=== PATIENT | female | born 1970 | race Asian ===

== ENCOUNTER 2019-02-22 06:53 | Day surgery (SDC) | payer OTHER ==
[2019-02-20 16:43] VITALS: BMI 26.4
--- NOTE | 2019-02-22 06:31 | HP ---
History & Physical Update - History History: No Change - Physical Physical: No Change - Assessment Assessment: No Change - Plan Plan: No Change (No change in HP)
[~2019-02-22 06:53] MED LIST: PHENAZOPYRIDINE HCL 100 MG TABLET (FP) PO ONE
[2019-02-22] MEDS ORDERED: PHENAZOPYRIDINE HCL 100 MG TABLET (FP) ONE (06:57)
[2019-02-22] MEDS ORDERED: MIDAZOLAM HCL 2 MG/2 ML SINGLE DOSE VIAL ONE ×2 (07:20)
[2019-02-22] MEDS ORDERED: ROPIVACAINE HCL 0.5% 30ML VIAL ONE (07:21)
[2019-02-22] MEDS ORDERED: ROCURONIUM BROMIDE 50 MG/5 ML SYRINGE ONE ×2 (07:31→09:56)
[2019-02-22] MEDS ORDERED: fentaNYL CITRATE 250 MCG/5 ML VIAL ONE (07:31)
[2019-02-22] MEDS ORDERED: EPHEDRINE SULFATE/0.9% NACL/PF 50 MG/10 ML SYRINGE NR ONE (07:31)
[2019-02-22] MEDS ORDERED: SUCCINYLCHOLINE CHLORIDE 200 MG/10 ML SYRINGE ONE (07:31)
[2019-02-22] MEDS ORDERED: PROPOFOL 20 ML ONE ×8 (07:31→15:37)
[2019-02-22] MEDS ORDERED: CEFAZOLIN 2 GM in DEXTROSE 5%-WATER - 100 ML IVPB ONE (07:51)
[2019-02-22] MEDS ORDERED: ceFAZolin 2 GRAM PREMIX BAG IVPB ONE (08:00)
[2019-02-22] MEDS ORDERED: BENZOIN TINCTURE SWABSTICK TP ONE (09:34)
[2019-02-22] MEDS ORDERED: NEOSTIGMINE METHYLSULFATE 0.5 MG/ML - 10 ML MDV ONE (09:41)
[2019-02-22] MEDS ORDERED: MEPERIDINE HCL 25 MG/ML VIAL ONE (10:26)
[2019-02-22] MEDS ORDERED: MEPERIDINE HCL 25 MG/ML VIAL IVPUSH ONE (10:30)
[2019-02-22] MEDS ORDERED: LACTATED RINGERS SOLUTION 1,000 ML IV SCH (10:30)
[2019-02-22] MEDS ORDERED: ONDANSETRON 4 MG/2 ML VIAL IVPUSH PRN ×2 (10:30→10:39)
[2019-02-22] MEDS ORDERED: DOCUSATE SODIUM 100 MG CAPSULE (FP) PO PRN (10:39)
[2019-02-22] MEDS ORDERED: SIMETHICONE 80 MG TAB.CHEW (FP) PO PRN (10:39)
[2019-02-22] MEDS ORDERED: BISACODYL 5 MG TABLET.DR (FP) PO PRN (10:39)
[2019-02-22] MEDS ORDERED: oxyCODONE HCL 5 MG TABLET PO PRN (10:39)
--- NOTE | 2019-02-22 10:55 | OP ---
<Tanya Vanegas - Last Filed: 02/22/19 11:08> Operative Note - Note: Operative Date: 02/22/19 Pre-Operative Diagnosis: abdominal pain. uterine fibroids Operation: robotic assisted laparoscopic hysterectomy, bilateral salpingectomy. Post-Operative Diagnosis: Same as Pre-op Surgeon: Kanchan Eden Battery Inspector: Tanya Vanegas Anesthesiologist/GUN EXAMINER: Eloise Berry Anesthesia: General, Local (block) Specimens Removed: uterus. bilateral fallopian tubes Estimated Blood Loss (mls): 50 Drains, Volume Out (mls): 200 (rodas) Fluid Volume Replaced (mls): 1,000 Operative Report Dictated: Yes <Kanchan Eden - Last Filed: 02/23/19 06:49> Operative Note - Note: Operation: Laparoscopic robotic Total Hysterectomy. Bilateral salpingectomy
--- NOTE | 2019-02-22 11:11 | SURG ---
Surgery City Council Member Note City Council Member: Tanya Vanegas PA-C Date of Service: 02/22/19 Diagnosis: abdominal pain. uterine fibroids Procedure: robotic assisted laparoscopic hysterectomy, bilateral salpingectomy. I was present for the entirety of the operative procedure. For further detail, please refer to operative report. Visit type - Case Type Case Type: Scheduled - Emergency Emergency Visit: No - New patient This patient is new to me today: Yes Date on this admission: 02/22/19
[2019-02-22] MEDS ORDERED: IBUPROFEN 800 MG/8 ML IJ IVPB ONE (13:51)
[2019-02-22] MEDS ORDERED: CEFAZOLIN 2 GM in DEXTROSE 5%-WATER - 100 ML IVPB SCH (16:00)
[2019-02-22] MEDS: IBUPROFEN 800 MG/8 ML IJ IVPB PRN (18:02)
[2019-02-22] MEDS: CEFAZOLIN 1 GM/D5W 1 GM/50 ML BAG IVPB SCH ×2 (18:04→18:05)
[2019-02-22 18:40] LABS: BLOOD UREA NITROGEN 8.7 mg/dL (7-18); CALCIUM 8.3 mg/dL (8.5-10.1); CREATININE 0.7 mg/dL (0.55-1.3); POTASSIUM 3.8 mmol/L (3.5-5.1)
[2019-02-22 18:43] LABS: HEMATOCRIT 37.7 % (32.4-45.2); HEMOGLOBIN 12.7 GM/dL (10.7-15.3); MCHC 33.7 g/dl (32.0-36.0); MEAN PLT VOLUME 8.6 fl (7.5-11.1); PLATELET COUNT 328 K/MM3 (134-434); RBC 4.24 M/mm3 (3.60-5.2); RDW 13.4 % (11.6-15.6); WHITE BLOOD COUNT 17.8 K/mm3 (4.0-10.0)
[2019-02-22] MEDS: oxyCODONE HCL 5 MG TABLET PO PRN ×2 (19:52→23:54)
[2019-02-22] MEDS: ACETAMINOPHEN 325 MG TABLET (FP) PO PRN (21:26)
[2019-02-23] MEDS ORDERED: DEXTROSE 5%-WATER - 50 ML IVPB ONE (01:27)
[2019-02-23] MEDS ORDERED: ceFAZolin SODIUM 1 GM VIAL ONE (01:27)
[2019-02-23] MEDS: IBUPROFEN 800 MG/8 ML IJ IVPB PRN (01:43)
[2019-02-23] MEDS ORDERED: CEFAZOLIN 1 GM in DEXTROSE 5%-WATER - 50 ML IVPB SCH (02:00)
--- NOTE | 2019-02-23 08:26 | OP ---
DATE OF OPERATION:02/22/2019 PREOPERATIVE DIAGNOSIS: Leiomyomatous uterus and abdominal pain. OPERATION: Laparoscopic total hysterectomy and bilateral salpingectomy. POSTOPERATIVE DIAGNOSIS: Leiomyomatous uterus and abdominal pain. SURGEON: Kanchan Eden MD KEY PUNCH TEACHER: CHIARA Gonsalez ANESTHESIA: General. DESCRIPTION OF PROCEDURE: The patient was taken to the operating room, placed in the dorsal lithotomy position, prepped and draped in the usual sterile fashion. A time-out was performed in accordance with hospital regulation. A speculum was placed into the vagina. The anterior lip of the cervix was grasped with a single-tooth tenaculum. The cervix was then dilated to accommodate the large uterine manipulator. The manipulator then inserted into the endometrial cavity. Attention was then drawn to the abdomen, where an 8-mm umbilical incision was made. Veress needle was inserted into the cavity. Approximately 3 to 4 L of CO2 was insufflated into the cavity. The Veress needle was then removed, and an 8-mm trocar was then inserted.Laparoscope and camera attached. Visualization revealed a leiomyomatous uterus with normal tubes and ovaries. Attention was then drawn to the abdomen, to the left side, where an 8-mm incision was made, 10 cm parallel to the umbilicus, and a 5-mm left upper abdomen incision was made, and a 5-mm AirSeal cannula was inserted. Attention was then drawn to the right side of the abdomen, where 2 incisions were placed, 10 mm apart from the umbilical incision, parallel. Then 8 mm incisions were made and 8-mm trocars were then inserted. The trocars were placed, and the da Lise robot was then side docked to the patient's bedside. Trocars were then inserted onto the da Lise. The instruments were then placed, the vessel sealer on the left, and Endo Norma and tenaculum on the right. After the instruments had been placed and all trocars had been and placed correctly near the uterus, attention was then drawn to the console, where control of the console was then. Tenaculum was then used to elevate the uterus to the right side, and the utero-ovarian ligament was identified, clamped and cut. The uterine arteries were identified, clamped and cut. Vesicouterine section was then entered. The bladder was then bluntly dissected out of the operative field. Endo Norma were then used to make the incision in the vagina. The same procedure was repeated on the right side. The utero-ovarian ligament was identified, clamped and cut. The cardinal ligaments and uterine artery were identified, clamped and cut. had been taken down and vessel sealer was used to go down to the level of the cervix. Endo Norma were then used to cut the vagina away from the cervix, and the uterus and cervix were then removed from the vagina. The tubes were bilaterally grasped with the vessel sealer, coagulated and cut, and the right tube and the left tube were submitted. The ovaries were noted to be normal. The ureters were identified bilaterally and found to have peristalsis. Then 2-0 V-Loc suture was passed into the abdomen, and the vagina was then closed using the da Lise in a continuous fashion using V-Loc suture. Hemostasis was achieved. The needle was then removed from the abdomen. The ureters were identified again and found to have vigorous peristalsis. All instruments were then removed. The CO2 was removed from the abdomen. The incisions were then closed using 3-0 Vicryl suture in a subcuticular fashion. The wounds were washed and dressed. The patient tolerated the procedure well. Estimated blood loss was 50 mL. Karthik [id number]
--- NOTE | 2019-02-23 08:30 | PN ---
Progress Note (short form) - Note Progress Note: BL[facility] [employer]AKER SURGERY POD #1 s/p robotic assisted laparoscopic hysterectomy, bilateral salpingectomy No acute events since surgery per RN notes. Hasn't been OOB yet. Melgar was removed last night at 10PM. States she hasn't voided yet. Doesn't feel the urge too. Tolerating PO diet. Denies n/v/f/c, CP, palpitations, SOB or RODRÍGUEZ. Last Vital Signs Temp Pulse Resp BP Pulse Ox 99.3 F 67 20 120/62 100 02/23/19 06:00 02/23/19 06:00 02/23/19 06:00 02/23/19 06:00 02/22/19 21:00 Gen: alert. nad. ABD: all surgical ports c/d/i LE: SCDs bilat. Soft. NT. Problem List - Problems (1) Uterine fibroid Assessment/Plan: POD #1 s/p robotic assisted laparoscopic hysterectomy, bilateral salpingectomy OOB and ambulate Reg diet Incentive spirometer If complains of suprapubic tenderness, bladder scan and notify Surgical PA Team and or Dr. Eden --> must void prior too dc home today Above plan discussed with Dr. Eden and agrees. Code(s): D25.9 - LEIOMYOMA OF UTERUS, UNSPECIFIED
[2019-02-23] MEDS: oxyCODONE HCL 5 MG TABLET PO PRN (08:53)
[2019-02-23 08:58] LABS: HEMATOCRIT 33.6 % (32.4-45.2); HEMOGLOBIN 11.3 GM/dL (10.7-15.3); MCH 29.9 pg (25.7-33.7); MCHC 33.7 g/dl (32.0-36.0); MEAN CELL VOLUME 88.7 fl (80-96); MEAN PLT VOLUME 8.3 fl (7.5-11.1); PLATELET COUNT 301 K/MM3 (134-434); RBC 3.79 M/mm3 (3.60-5.2); RDW 13.4 % (11.6-15.6); WHITE BLOOD COUNT 12.9 K/mm3 (4.0-10.0)
[2019-02-23 09:26] LABS: BLOOD UREA NITROGEN 11.1 mg/dL (7-18); CALCIUM 8.1 mg/dL (8.5-10.1); CREATININE 0.7 mg/dL (0.55-1.3); POTASSIUM 3.8 mmol/L (3.5-5.1)
[2019-02-23] MEDS ORDERED: amLODIPine BESYLATE 5 MG TABLET (FP) PO SCH (10:00)
[2019-02-23] MEDS ORDERED: ENOXAPARIN NA (PORCINE) 40 MG/0.4 ML DISP.SYRIN SQ SCH ×2 (10:00)
--- NOTE | 2019-02-23 10:03 | PN ---
Progress Note (SOAP) - Subjective Chief Complaint: Pt with c/o of abdominal pain Pt did not void since last night - Current Medications Current Medications: Active Medications Acetaminophen (Tylenol -) 650 mg PO Q4H PRN PRN Reason: FEVER Last Admin: 02/22/19 21:26 Dose: 650 mg Amlodipine Besylate (Norvasc -) 5 mg PO DAILY [facility] Last Admin: 02/23/19 09:05 Dose: 5 mg Bisacodyl (Dulcolax -) 10 mg PO ONCE PRN PRN Reason: CONSTIPATION Docusate Sodium (Colace -) 100 mg PO TID PRN PRN Reason: CONSTIPATION Enoxaparin Sodium (Lovenox -) 40 mg SQ DAILY [facility] Last Admin: 02/23/19 09:06 Dose: 40 mg Fentanyl (Sublimaze Injection -) 50 mcg IVPUSH [id number] PRN PRN Reason: PAIN-PACU ORDER X 4 DOSES ONLY Last Admin: 02/22/19 10:22 Dose: 50 mcg Lactated Ringer's (Lactated Ringers Solution) 1,000 mls @ 125 mls/hr IV ASDIR [facility] Last Admin: 02/22/19 18:04 Dose: 125 mls/hr Ibuprofen (Caldolor Injection -) 800 mg IVPB Q8H PRN PRN Reason: PAIN LEVEL 1-5 Last Admin: 02/23/19 01:43 Dose: 800 mg Ondansetron HCl (Zofran Injection) 4 mg IVPUSH Q6H PRN PRN Reason: NAUSEA AND/OR VOMITING Ondansetron HCl (Zofran Injection) 4 mg IVPUSH Q4H PRN PRN Reason: NAUSEA AND/OR VOMITING Oxycodone HCl (Roxicodone -) 5 mg PO Q4H PRN PRN Reason: PAIN LEVEL 1-5 Oxycodone HCl (Roxicodone -) 10 mg PO Q4H PRN PRN Reason: PAIN LEVEL 6-10 Stop: 02/23/19 10:38 Last Admin: 02/23/19 08:53 Dose: 10 mg Simethicone (Mylicon -) 80 mg PO Q4H PRN PRN Reason: GAS Last Admin: 02/23/19 09:06 Dose: 80 mg - Objective Vital Signs: Vital Signs Temperature 99.3 F 02/23/19 06:00 Pulse Rate 67 12/13/19 06:00 Respiratory Rate 20 02/23/19 06:00 Blood Pressure 120/62 02/23/19 06:00 O2 Sat by Pulse Oximetry (%) 100 02/22/19 21:00 Constitutional: Yes: Well Nourished, No Distress, Calm Gastrointestinal: Yes: WNL, Soft, Other (inccision intact no drainage) Extremities: Yes: WNL Edema: No Wound/Incision: Yes: Steri Strips Neurological: Yes: WNL, Alert, Oriented Labs Lab Results: CBCD WBC 12.9 K/mm3 (4.0-10.0) H 02/23/19 08:20 RBC 3.79 M/mm3 (3.60-5.2) 02/23/19 08:20 Hgb 11.3 GM/dL (10.7-15.3) 02/23/19 08:20 Hct 33.6 % (32.4-45.2) 02/23/19 08:20 MCV 88.7 fl (80-96) 02/23/19 08:20 MCHC 33.7 g/dl (32.0-36.0) 02/23/19 08:20 RDW 13.4 % (11.6-15.6) 02/23/19 08:20 Plt Count 301 K/MM3 (134-434) 02/23/19 08:20 MPV 8.3 fl (7.5-11.1) 02/23/19 08:20 CMP Sodium 138 mmol/L (136-145) 02/23/19 08:20 Potassium 3.8 mmol/L (3.5-5.1) 02/23/19 08:20 Chloride 102 mmol/L (98-107) 02/23/19 08:20 Carbon Dioxide 29 mmol/L (21-32) 02/23/19 08:20 Anion Gap 7 MMOL/L (8-16) L 02/23/19 08:20 BUN 11.1 mg/dL (7-18) 02/23/19 08:20 Creatinine 0.7 mg/dL (0.55-1.3) 02/23/19 08:20 Random Glucose 134 mg/dL (74-106) H 02/23/19 08:20 Calcium 8.1 mg/dL (8.5-10.1) L 02/23/19 08:20 Assessment/Plan POD 1 stable Plan OOB Measure void DC home if able to void will straight cath if unable to void
[2019-02-23 14:04] VITALS: BP 116/64; PULSE 69; TEMP 98
[2019-02-23] MEDS: ACETAMINOPHEN 325 MG TABLET (FP) PO PRN (16:53)
--- NOTE | 2019-02-27 16:55 | PATH ---
Surgical Pathology Report Patient Name: STELLA [facility]. Rec. #: [id number] /Age/Gender: 1970 (Age: 48) / F Account: [id number] Location: AMBULATORY SURG Taken: 02/22/2019 Received: 02/22/2019 Reported: 02/27/2019 Physicians: Kanchan Eden M.D. Specimen(s) Received A: UTERUS AND CERVIX B: LEFT FALLOPIAN TUBE C: RIGHT FALLOPIAN TUBE Clinical History Fibroids Final Diagnosis A. UTERUS, CERVIX, ROBOTIC LAPAROSCOPIC TOTAL HYSTERECTOMY: 232 G UTERUS. LEIOMYOMA, INTRAMURAL. PROLIFERATIVE ENDOMETRIUM. CERVIX WITHOUT SIGNIFICANT PATHOLOGIC FINDINGS. B. FALLOPIAN TUBE, LEFT, SALPINGECTOMY: FALLOPIAN TUBE WITH ENDOSALPINGOSIS (INCLUDING FIMBRIATED END AND FULL LUMINAL PORTION). C. FALLOPIAN TUBE, RIGHT, SALPINGECTOMY: FALLOPIAN TUBE WITH ENDOSALPINGOSIS (INCLUDING FIMBRIATED END AND FULL LUMINAL PORTION). Electronically Signed Nell Lara M.D. Gross Description A. Received in formalin labeled "uterus and cervix," is a 232 g uterus with an attached cervix and no attached adnexa. The specimen measures 10.5 cm from superior to inferior, 7 cm from left to right and 6 cm from anterior to posterior. The serosa is spicer-galicia and smooth. The cervix measures 3 cm in length and 4.5 cm in diameter. The ectocervix is spicer-pink, smooth and glistening. The endocervix is unremarkable. The endometrial cavity measures 4.3 cm in length and 2.5 cm from cornu to cornu. The endometrium is spicer-brown and measures up to 0.2 cm in thickness. There is a 0.9 cm in greatest dimension intramural nodule present. The remaining myometrium is spicer-pink, firm and trabeculated. The myometrium averages 3 cm in thickness. Regional Maintenance Manager sections are submitted in 7 cassettes as follows: 1-anterior cervix; 2-posterior cervix; 1-3-[id number] endomyometrium; 6-9-[id number] endomyometrium; 7-intramural nodule. B. Received in formalin labeled "left fallopian tube," is a 3 cm in length fimbriated portion of fallopian tube. The outer surface is spicer powers and smooth. Sectioning reveals an unremarkable lumen. Regional Maintenance Manager sections are submitted in 2 cassettes as follows: 1-fimbria; 2-cross sections of fallopian tube. C. Received in formalin labeled "right fallopian tube," is a 3.5 cm in length fimbriated fallopian tube. The outer surface is galicia purple and smooth. Sectioning reveals an unremarkable lumen. Regional Maintenance Manager sections are submitted in 2 cassettes as follows: 1-fimbria; 2-cross sections of fallopian tube. 02/23/2019 [facility]02/23/2019
== END 2019-02-23 17:49 | disposition home or self-care (01) ==
LOC: JASUSAT 06:53 → J6S 14:30 → JASUSAT 02-23 17:49
PROVIDERS: ATTEND Obstetrics & Gynecology
PROC: 8E0W4CZ Robotic Assisted Procedure of Trunk Region, Percutaneous Endoscopic Approach (ICD-10-PCS; 2019-02-22)
PROC: 0UT9FZZ Resection of Uterus, Via Natural or Artificial Opening With Percutaneous Endoscopic Assistance (ICD-10-PCS; principal; 2019-02-22 07:30)
PROC: 0UT7FZZ Resection of Bilateral Fallopian Tubes, Via Natural or Artificial Opening With Percutaneous Endoscopic Assistance (ICD-10-PCS; 2019-02-22 07:30)
DX: D25.9 Leiomyoma of uterus, unspecified (principal)
CPT/HCPCS: 58552; S2900; 36415; 80048; 85027; 88302-TC; 88307-TC; 94760

== ENCOUNTER 2020-09-22 05:18 | Day surgery (SDC) | payer OTHER ==
[2020-09-18 15:15] VITALS: BMI 27.6
[2020-09-22 10:49] VITALS: TEMP 97.2
[2020-09-22 11:31] VITALS: BP 136/82; PULSE 65
== END 2020-09-22 11:45 | disposition home or self-care (01) ==
LOC: JASU-ENDO 05:18
PROVIDERS: ATTEND Internal Medicine Gastroenterology
PROC: 0DBL8ZX Excision of Transverse Colon, Via Natural or Artificial Opening Endoscopic, Diagnostic (ICD-10-PCS; principal; 2020-09-22 10:00)
DX: Z12.11 Encounter for screening for malignant neoplasm of colon (principal); K63.5 Polyp of colon; I10 Essential (primary) hypertension; Z88.0 Allergy status to penicillin
CPT/HCPCS: 88305-TC